=== PATIENT | male | born 1940 | race Caucasian/White ===

== ENCOUNTER 2023-02-21 12:52 | Outpatient (CLI) | payer MEDICARE ==
[2023-02-21 13:52] LABS: Bilirubin Neg (Negative); Blood, Urine 50 (Negative); Clarity Clear (Clear); Glucose, Urine (Dipstick) Normal (Negative); Ketone, Urine Negative (Negative); Leukocyte 25 (Negative); Nitrite Negative (Negative); Protein, Urine (Dipstick) Negative (Neg-Trace); Urobilinogen Normal mg/dL (Less than 2)
[2023-02-21 13:57] LABS: #Eosinphils 0.1 10x3/uL (0.0-0.5); #Monocytes 0.7 10x3/uL (0.0-1.1); #Neutrophils 3.4 10x3/uL (1.5-8.4); %Basophils 0.3 % (0.0-2.0); %Lymphocytes 33.4 % (18.0-47.0); %Monocytes 10.7 % (0.0-10.0); %Neutrophils 54.3 % (40.0-75.0); Hemoglobin 13.9 g/dL (13.5-17.5); Mean Corpuscular HGB CONC 32.9 g/dL (32.0-36.0); Mean Corpuscular Hemoglobin 31.1 pg (27.0-33.0); Mean Corpuscular Volume 94.6 fl (81.2-95.1); Mean Platelet Volume 10.4 fl (7.4-10.4); Platelet Count 254 10x3/uL (150-450); RBC Distribution Width 13.3 % (11.5-14.5); Red Blood Cell (RBC) Count 4.47 10x6/uL (4.32-5.72); White Blood Cell (WBC) Count 6.3 10x3/uL (3.5-10.5)
[2023-02-21 14:21] LABS: Prothrombin Time 10.8 sec (9.5-12.1)
[2023-02-21 14:22] LABS: Anion Gap 13 mmol/L (10-20); BUN (Urea Nitrogen) 32 mg/dL (8.4-25.7); Calc. Creatinine Clearance 0 mL/min (70-130); Calcium 9.3 mg/dL (7.8-10.44); Carbon Dioxide 29 mmol/L (23-31); Chloride 105 mmol/L (98-107); Estimated GFR 62; Glucose 89 mg/dL (83-110); Potassium 4.6 mmol/L (3.5-5.1); Sodium 142 mmol/L (136-145)
== END 2023-02-21 12:53 | disposition home or self-care (01) ==
LOC: LABBT 12:52
PROVIDERS: ATTEND Orthopaedic Surgery
DX: Z01.818 Encounter for other preprocedural examination (principal); M17.12 Unilateral primary osteoarthritis, left knee
CPT/HCPCS: 71046; 80048; 81003; 85025; 85610; 86850; 86900; 86901; 87081; 93005; 93010

== ENCOUNTER 2023-02-26 07:02 | Observation (INO) | payer MEDICARE ==
[2023-02-21 13:28] VITALS: BMI 31.0
[2023-02-21 13:52] LABS: Bilirubin Neg (Negative); Blood, Urine 50 (Negative); Clarity Clear (Clear); Glucose, Urine (Dipstick) Normal (Negative); Ketone, Urine Negative (Negative); Leukocyte 25 (Negative); Nitrite Negative (Negative); Protein, Urine (Dipstick) Negative (Neg-Trace); Urobilinogen Normal mg/dL (Less than 2)
[2023-02-21 13:57] LABS: #Eosinphils 0.1 10x3/uL (0.0-0.5); #Monocytes 0.7 10x3/uL (0.0-1.1); #Neutrophils 3.4 10x3/uL (1.5-8.4); %Basophils 0.3 % (0.0-2.0); %Lymphocytes 33.4 % (18.0-47.0); %Monocytes 10.7 % (0.0-10.0); %Neutrophils 54.3 % (40.0-75.0); Hematocrit 42.3 % (38.8-50.0); Hemoglobin 13.9 g/dL (13.5-17.5); Mean Corpuscular HGB CONC 32.9 g/dL (32.0-36.0); Mean Corpuscular Hemoglobin 31.1 pg (27.0-33.0); Mean Corpuscular Volume 94.6 fl (81.2-95.1); Mean Platelet Volume 10.4 fl (7.4-10.4); Platelet Count 254 10x3/uL (150-450); RBC Distribution Width 13.3 % (11.5-14.5); Red Blood Cell (RBC) Count 4.47 10x6/uL (4.32-5.72); White Blood Cell (WBC) Count 6.3 10x3/uL (3.5-10.5)
[2023-02-21 14:21] LABS: Prothrombin Time 10.8 sec (9.5-12.1)
[2023-02-21 14:22] LABS: Anion Gap 13 mmol/L (10-20); BUN (Urea Nitrogen) 32 mg/dL (8.4-25.7); Calc. Creatinine Clearance 0 mL/min (70-130); Calcium 9.3 mg/dL (7.8-10.44); Carbon Dioxide 29 mmol/L (23-31); Chloride 105 mmol/L (98-107); Estimated GFR 62; Glucose 89 mg/dL (83-110); Potassium 4.6 mmol/L (3.5-5.1); Sodium 142 mmol/L (136-145)
[2023-02-26] MEDS ORDERED: Sevoflurane 250 ML INH ANEST BOTTLE ONE (07:29)
[2023-02-26] MEDS ORDERED: Vancomycin (BATCH) 1.5 GRAM/300 ML BAG ONE (07:29)
[2023-02-26] MEDS ORDERED: Tranexamic Acid 1,000 MG/10 ML VIAL ONE ×2 (07:29→11:55)
[2023-02-26] MEDS ORDERED: Bupivacaine 0.25% HCL 30 ML VIAL ONE (07:29)
[2023-02-26] MEDS ORDERED: Sodium Chloride 0.9% 100 ML ONE ×2 (07:29→07:43)
[2023-02-26] MEDS ORDERED: CEFAZOLIN 2 GM VIAL ONE (07:43)
[2023-02-26] MEDS ORDERED: fentaNYL 50 mcg/mL 1 mL Vial ONE ×3 (08:06→12:34)
[2023-02-26] MEDS ORDERED: Lidocaine 1% MPF 2 ML VIAL ONE (08:06)
[2023-02-26] MEDS ORDERED: Ropivacaine 0.2% HCl/PF 20 ML ONE (08:06)
[2023-02-26] MEDS ORDERED: Midazolam HCl 2 mg/2 ml Vial ONE (08:06)
[2023-02-26] MEDS ORDERED: Acetaminophen 500 MG TAB ONE ×2 (08:07→08:08)
[2023-02-26] MEDS ORDERED: Acetaminophen 325 MG TAB ONE (08:07)
[2023-02-26] MEDS ORDERED: Ropivacaine 0.5% HCl/PF (150 MG/30 ML VIAL) ONE (08:08)
[2023-02-26] MEDS ORDERED: Lidocaine 1% PF 5 ML VIAL ONE (08:50)
[2023-02-26] MEDS ORDERED: Ondansetron PF 4 MG/2 ML Vial ONE (08:50)
[2023-02-26] MEDS ORDERED: PROPOFOL 200 MG/20 ML VIAL ONE (08:50)
[2023-02-26] MEDS ORDERED: ePHEDrine Sulfate 50 MG/10 ML VIAL ONE (08:50)
[2023-02-26] MEDS ORDERED: Dexamethasone 20 MG/5 ML VIAL ONE (08:50)
[2023-02-26] MEDS ORDERED: fentaNYL 50 mcg/mL 1 mL Vial SLOW IVP PRN (08:53)
[2023-02-26] MEDS ORDERED: HYDROcodone/Acetaminophen 5/325 mg Tablet PO PRN (09:00)
[2023-02-26] MEDS ORDERED: Ropivacaine 0.2% 550 ML 550 ML NERVE BLCK SCH (09:00)
[2023-02-26] MEDS ORDERED: Ondansetron PF 4 MG/2 ML Vial IVP PRN ×2 (09:00→10:55)
[2023-02-26] MEDS ORDERED: Zolpidem Tartrate 5 MG TAB PO PRN ×2 (09:00→10:55)
[2023-02-26] MEDS ORDERED: Promethazine HCl 25 MG/ML VIAL IM PRN ×3 (09:00→10:55)
[2023-02-26] MEDS ORDERED: fentaNYL PF 100 MCG/2 ML SYRINGE ONE (09:07)
[2023-02-26] MEDS ORDERED: Ondansetron HCl/PF 4 MG/2 ML Vial IVP PRN (10:42)
[2023-02-26] MEDS ORDERED: Meperidine HCl/PF 25 MG/ML VIAL SLOW IVP PRN (10:42)
[2023-02-26] MEDS ORDERED: HYDROmorphone 2 MG/ML VIAL SLOW IVP PRN (10:42)
[2023-02-26] MEDS ORDERED: diphenhydrAMINE 25 MG CAP PO PRN (10:55)
[2023-02-26] MEDS ORDERED: traMADol HCl 50 MG TAB PO PRN (10:55)
[2023-02-26] MEDS ORDERED: Acetaminophen 325 MG TAB PO PRN (10:55)
[2023-02-26] MEDS ORDERED: HYDROcodone/Acetaminophen 10/325 mg Tablet PO PRN ×2 (10:55)
[2023-02-26] MEDS ORDERED: Tranexamic Acid 1,000 MG in Sodium Chloride 0.9% 100 ML IVPB SCH (11:00)
[2023-02-26] MEDS ORDERED: HYDROmorphone 0.5 MG/0.5 ML SYRINGE ONE (11:14)
[2023-02-26] MEDS: Ketorolac Tromethamine 30 MG/ML VIAL IVP SCH ×3 (16:08→23:49)
[2023-02-26] MEDS: CEFAZOLIN 2 GM in Sodium Chloride 0.9% 100 ML IVPB SCH ×2 (16:10→23:49)
[2023-02-26] MEDS: Sodium Chloride 0.9% 1,000 ML IV SCH ×2 (16:28→21:27)
[2023-02-26] MEDS ORDERED: hydrALAZINE 20 MG/ML VIAL SLOW IVP SCH (18:15)
[2023-02-26] MEDS: Senokot S 8.6-50 MG TAB PO SCH (19:42)
[2023-02-26] MEDS: Ferrous Gluconate 324 MG TAB PO SCH (19:42)
[2023-02-26] MEDS ORDERED: Vancomycin HCl 1.5 GM in Sodium Chloride 0.9% 250 ML 300 ML IVPB SCH (20:00)
[2023-02-26] MEDS ORDERED: Vancomycin 1.5 GRAM/300 ML BAG 1.5 GM in Premix Bag 1 BAG IVPB SCH (20:30)
[2023-02-26] MEDS: Atorvastatin Calcium 40 MG TAB PO SCH (20:37)
[2023-02-26] MEDS: Aspirin 81 mg Enteric Coated Tablet PO SCH (20:37)
[2023-02-26] MEDS: Ezetimibe 10 MG TAB PO SCH (20:37)
[2023-02-27] MEDS: Ketorolac Tromethamine 30 MG/ML VIAL IVP SCH ×4 (05:24→23:57)
[2023-02-27 06:00] LABS: Hematocrit 37.9 % (42.0-52.0); Hemoglobin 12.5 g/dL (14.0-18.0); Mean Corpuscular Hemoglobin 31.9 pg (27.0-31.0); Mean Corpuscular Volume 96.7 fl (78.0-98.0); Mean Platelet Volume 10.3 fL (7.4-10.4); Platelet Count 207 10x3/uL (130-400); RBC Distribution Width 13.3 % (11.5-14.5); Red Blood Cell (RBC) Count 3.92 mill/uL (4.70-6.10)
[2023-02-27] MEDS: Sodium Chloride 0.9% 1,000 ML IV SCH ×2 (07:46→16:51)
[2023-02-27] MEDS: Ferrous Gluconate 324 MG TAB PO SCH ×2 (08:49→20:53)
[2023-02-27] MEDS: Lisinopril 2.5 MG TAB PO SCH (08:49)
[2023-02-27] MEDS: metFORMIN 500 MG TAB PO SCH (08:49)
[2023-02-27] MEDS: Aspirin 81 mg Enteric Coated Tablet PO SCH ×2 (08:49→20:52)
[2023-02-27] MEDS: Hydrochlorothiazide 25 MG TAB PO SCH (08:50)
[2023-02-27] MEDS: Multivitamin W/ Minerals 1 TAB PO SCH (08:50)
[2023-02-27] MEDS: Senokot S 8.6-50 MG TAB PO SCH ×2 (08:50→20:52)
[2023-02-27] MEDS: HYDROcodone/Acetaminophen 5/325 mg Tablet PO PRN ×3 (08:55→20:53)
[2023-02-27] MEDS ORDERED: Vancomycin 1.5 GRAM/300 ML BAG 1.5 GM in Premix Bag 1 BAG IVPB SCH (20:00)
[2023-02-27] MEDS: Ezetimibe 10 MG TAB PO SCH (20:52)
[2023-02-27] MEDS: Apixaban 5 MG TAB PO SCH (20:52)
[2023-02-27] MEDS: Atorvastatin Calcium 40 MG TAB PO SCH (20:52)
[2023-02-28] MEDS: Sodium Chloride 0.9% 1,000 ML IV SCH (02:11)
[2023-02-28] MEDS: Ketorolac Tromethamine 30 MG/ML VIAL IVP SCH (05:11)
[2023-02-28 05:18] VITALS: BP 162/81; TEMP 98.7
[2023-02-28 06:03] LABS: Hemoglobin 11.5 g/dL (14.0-18.0); Mean Corpuscular HGB CONC 32.9 g/dL (32.0-36.0); Mean Corpuscular Hemoglobin 31.9 pg (27.0-31.0); Mean Platelet Volume 10.4 fL (7.4-10.4); Platelet Count 198 10x3/uL (130-400); RBC Distribution Width 13.4 % (11.5-14.5); Red Blood Cell (RBC) Count 3.61 mill/uL (4.70-6.10); White Blood Cell (WBC) Count 7.8 10x3/uL (4.8-10.8)
[2023-02-28] MEDS: Senokot S 8.6-50 MG TAB PO SCH (09:05)
[2023-02-28] MEDS: Aspirin 81 mg Enteric Coated Tablet PO SCH (09:06)
[2023-02-28] MEDS: Multivitamin W/ Minerals 1 TAB PO SCH (09:06)
[2023-02-28] MEDS: Lisinopril 2.5 MG TAB PO SCH (09:06)
[2023-02-28] MEDS: Apixaban 5 MG TAB PO SCH (09:06)
[2023-02-28] MEDS: metFORMIN 500 MG TAB PO SCH (09:06)
[2023-02-28] MEDS: Ferrous Gluconate 324 MG TAB PO SCH (09:06)
[2023-02-28] MEDS: Hydrochlorothiazide 25 MG TAB PO SCH (09:06)
[2023-02-28] MEDS: HYDROcodone/Acetaminophen 5/325 mg Tablet PO PRN (09:10)
== END 2023-02-28 12:00 | disposition home or self-care (01) ==
LOC: SDC 07:02 → EDSTATUS 13:00 → SJJU 14:24
PROVIDERS: ADMIT Orthopaedic Surgery; ATTEND Orthopaedic Surgery
PROC: 0SRD0JZ Replacement of Left Knee Joint with Synthetic Substitute, Open Approach (ICD-10-PCS; principal; 2023-02-26)
DX: M17.12 Unilateral primary osteoarthritis, left knee (principal); I10 Essential (primary) hypertension; Z79.899 Other long term (current) drug therapy
CPT/HCPCS: 27447; 80048; 81003; 82962 ×2; 85025; 85027 ×2; 85610; 86850; 86900; 86901; 87081; 97110 ×3; 97116 ×3; 97530 ×2; 97763; A4306; C1776; J0360; J3010; J3370; 36415; 36416; J1100; J1170; J1885; J2250; J2405; J2704; J2795; J3490; S0020

== ENCOUNTER 2025-04-09 13:23 | Outpatient (CLI) | payer MEDICARE | END 2025-04-09 13:24 | disposition home or self-care (01) | LOC: SCSMRI 13:23 | PROVIDERS: ATTEND Orthopaedic Surgery | DX: M17.11 Unilateral primary osteoarthritis, right knee (principal); S83.231A Complex tear of medial meniscus, current injury, right knee, initial encounter; M94.8X6 Other specified disorders of cartilage, lower leg; M25.461 Effusion, right knee ==